=== PATIENT | female | born 1970 | race American Indian/Alaskan Native ===

== ENCOUNTER 2019-02-28 16:19 | Emergency (ER) | payer OTHER ==
[2019-02-28 16:37] VITALS: BP 150/84
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
[2019-02-28] MEDS ORDERED: IBUPROFEN PO ONE (17:42)
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
== END 2019-02-28 19:00 | disposition home or self-care (01) ==
LOC: ED 16:19
DX: S39.012A Strain of muscle, fascia and tendon of lower back, initial encounter (principal); S13.4XXA Sprain of ligaments of cervical spine, initial encounter; V49.49XA Driver injured in collision with other motor vehicles in traffic accident, initial encounter; Y93.89 Activity, other specified; Y92.89 Other specified places as the place of occurrence of the external cause; Y99.8 Other external cause status
CPT/HCPCS: 72040; 72100

== ENCOUNTER 2019-12-31 23:20 | Emergency (ER) | payer SELFPAY ==
[2020-01-01] MEDS ORDERED: IBUPROFEN ORAL LIQD 100 MG/5 ML ORAL.LIQD ONE (00:26)
[2020-01-01 00:27] VITALS: BP 159/91
[2020-01-01] MEDS ORDERED: IBUPROFEN ORAL LIQD 100 MG/5 ML ORAL.LIQD PO ONE (00:27)
[2020-01-01] MEDS ORDERED: dexAMETHasone 20 MG/5 ML VIAL IM ONE (02:02)
[2020-01-01] MEDS ORDERED: PENICILLIN G BENZATHINE 1.2 MILLION UNIT/2 ML INJ IM ONE (02:02)
[2020-01-01] MEDS ORDERED: ACETAMINOPHEN 500 MG TAB PO ONE (02:03)
[2020-01-01] MEDS ORDERED: LIDOCAINE VISCOUS 2% 15 ML ORAL LIQD PO ONE (02:03)
--- NOTE | 2020-01-01 03:15 | Emergency Department Report ---
ED General Adult HPI - General Chief complaint: Sore Throat Stated complaint: SORE THROAT HEADACHE Source: patient Mode of arrival: Ambulatory Limitations: No Limitations - History of Present Illness Initial comments: Patient is a 49-year-old -[place] female with no past medical history who presents to the ED with complaint of acute onset persistent severe sore throat, dysphagia, nasal and sinus congestion, dry cough, diffuse body aches and pains, headache, and subjective fever and chills. Patient states that no one else at home has had similar symptoms. Patient states that pain is worse with swallowing. Patient denies dizziness, nausea, vomiting, diarrhea, abdominal pain,, dysuria, urinary frequency and urgency, vaginal bleeding, vaginal discharge, syncope or low back pain. MD Complaint: Sore throat, dysphagia, swollen lymph nodes -: Sudden, days(s) (3) Location: mouth Radiation: non-radiation Severity scale (0 -10): 7 Quality: aching, sharp Consistency: constant Improves with: none Worsens with: eating Associated Symptoms: denies other symptoms. denies: confusion, chest pain, cough, diaphoresis, fever/chills Treatments Prior to Arrival: none - Related Data Previous Rx's Medication Instructions Recorded Last Taken Type Cyclobenzaprine [Flexeril] 10 mg PO QHS PRN #10 tablet 02/28/19 Unknown Rx Ibuprofen [Motrin] 600 mg PO Q8H PRN #20 tablet 02/28/19 Unknown Rx Azithromycin [Zithromax Z-THOMAS] 250 mg PO DAILY #6 tablet 01/01/20 Unknown Rx Ibuprofen [Motrin] 800 mg PO Q8HR PRN #30 tablet 01/01/20 Unknown Rx Lidocaine Viscous 2% 10 ml PO Q6H PRN #120 ml 01/01/20 Unknown Rx methylPREDNISolone [Medrol 4MG 4 mg PO DAILY #21 tab.ds.pk 01/01/20 Unknown Rx DOSEPAK (21 tabs)] Allergies Allergy/AdvReac Type Severity Reaction Status Date / Time No Known Allergies Allergy Verified 01/01/20 00:32 ED Review of Systems ROS: Stated complaint: SORE THROAT HEADACHE Other details as noted in HPI Constitutional: chills, fever, malaise Eyes: denies: eye pain, eye discharge, vision change ENT: throat pain (Erythematous swollen tonsils and oropharynx), congestion, other (Grossly congested nasal passages). denies: ear pain, dental pain, hearing loss, epistaxis Respiratory: denies: cough, shortness of breath, SOB with exertion, wheezing Cardiovascular: denies: chest pain, palpitations, edema Endocrine: no symptoms reported Gastrointestinal: nausea. denies: abdominal pain, diarrhea Genitourinary: denies: urgency, dysuria, discharge Musculoskeletal: denies: back pain, joint swelling, arthralgia Skin: denies: rash, lesions Neurological: denies: headache, weakness, paresthesias Psychiatric: denies: anxiety, depression Hematological/Lymphatic: denies: easy bleeding, easy bruising ED Past Medical Hx - Past Medical History Previous Medical History?: No - Surgical History Past Surgical History?: Yes Additional Surgical History: ELBOW SURGERY, 2017 - Social History Smoking Status: Never Smoker Substance Use Type: None - Medications Home Medications: Home Medications Medication Instructions Recorded Confirmed Last Taken Type Cyclobenzaprine [Flexeril] 10 mg PO QHS PRN #10 tablet 02/28/19 Unknown Rx Ibuprofen [Motrin] 600 mg PO Q8H PRN #20 tablet 02/28/19 Unknown Rx Azithromycin [Zithromax Z-THOMAS] 250 mg PO DAILY #6 tablet 01/01/20 Unknown Rx Ibuprofen [Motrin] 800 mg PO Q8HR PRN #30 tablet 01/01/20 Unknown Rx Lidocaine Viscous 2% 10 ml PO Q6H PRN #120 ml 01/01/20 Unknown Rx methylPREDNISolone [Medrol 4MG 4 mg PO DAILY #21 tab.ds.pk 01/01/20 Unknown Rx DOSEPAK (21 tabs)] ED Physical Exam - General Limitations: No Limitations General appearance: alert, in no apparent distress - Head Head exam: Present: atraumatic, normocephalic, normal inspection - Eye Eye exam: Present: normal appearance, PERRL, EOMI Pupils: Present: normal accommodation - ENT ENT exam: Present: normal exam, mucous membranes moist, TM's normal bilaterally, normal external ear exam, other (Erythematous swollen tonsils with no sign of peritonsillar abscess) - Neck Neck exam: Present: normal inspection, lymphadenopathy. Absent: tenderness, meningismus - Respiratory Respiratory exam: Present: normal lung sounds bilaterally. Absent: respiratory distress, wheezes, rhonchi, chest wall tenderness, accessory muscle use, decreased breath sounds - Cardiovascular Cardiovascular Exam: Present: normal rhythm, tachycardia. Absent: normal heart sounds, systolic murmur, diastolic murmur, rubs, gallop - GI/Abdominal GI/Abdominal exam: Present: soft, normal bowel sounds. Absent: tenderness, guarding, rebound - Extremities Exam Extremities exam: Present: normal inspection, full ROM, normal capillary refill - Back Exam Back exam: Present: normal inspection, full ROM. Absent: tenderness, CVA tenderness (R), CVA tenderness (L), muscle spasm, paraspinal tenderness, vertebral tenderness - Neurological Exam Neurological exam: Present: alert, oriented X3, CN II-XII intact, normal gait, reflexes normal - Psychiatric Psychiatric exam: Present: normal affect, normal mood. Absent: depressed, agitated - Skin Skin exam: Present: warm, dry, intact, normal color. Absent: rash ED Course Vital Signs 01/01/20 00:21 Temperature 99.9 F H Pulse Rate 108 H Respiratory 16 Rate Blood Pressure 159/91 O2 Sat by Pulse 97 Oximetry ED Medical Decision Making - Medical Decision Making This is a 49-year-old female who presented to the ED with persistent sore throat with dysphagia, subjective fever and chills and diffuse body aches and pains for 3 days. In the ED, patient is alert and oriented x3 and is not in any distress but appears to be uncomfortable, tachycardic and slightly febrile in triage. Patient was treated in the ED for a suspected streptococcal pharyngitis based on the physical exam findings. On reevaluation, patient pain is well controlled medications. Patient will discharge home on medications and advised to follow- up with her primary care physician in 7 to 10 days for reevaluation. Patient was advised return to the ED immediately if symptoms get worse. - Differential Diagnosis Strep pharyngitis; Viral pharyngitis; URI; Bronchitis Critical care attestation.: If time is entered above; I have spent that time in minutes in the direct care of this critically ill patient, excluding procedure time. ED Disposition Clinical Impression: Acute streptococcal pharyngitis, Acute upper respiratory infection, Acute bacterial tonsillitis, Anterior cervical lymphadenopathy Disposition: TO HOME OR SELFCARE Is pt being admited?: No Does the pt Need Aspirin: No Condition: Stable Instructions: Pharyngitis (ED), Strep Throat (ED), Upper Respiratory Infection (ED), Tonsillitis (ED) Additional Instructions: Take medications with food, drink plenty of fluids and follow-up with your primary care physician in 7 to 10 days for reevaluation. Return to the ED immediately if symptoms get worse. Prescriptions: Lidocaine Viscous 2% 10 ml PO Q6H PRN #120 ml PRN Reason: Pain , Severe (7-10) methylPREDNISolone [Medrol 4MG DOSEPAK (21 tabs)] 4 mg PO DAILY #21 tab.ds.pk Ibuprofen [Motrin] 800 mg PO Q8HR PRN #30 tablet PRN Reason: Pain , Severe (7-10) Azithromycin [Zithromax Z-THOMAS] 250 mg PO DAILY #6 tablet Referrals: IONA ALBERTO MD [Staff Physician] - 7-10 days Forms: Work/School Release Form(ED) Time of Disposition: 03:31 Print Language: NORWEGIAN
== END 2020-01-01 04:23 | disposition home or self-care (01) ==
LOC: ED 23:20
DX: J02.0 Streptococcal pharyngitis (principal); R59.0 Localized enlarged lymph nodes; Z98.890 Other specified postprocedural states; Z79.1 Long term (current) use of non-steroidal anti-inflammatories (NSAID); Z79.899 Other long term (current) drug therapy
CPT/HCPCS: 96372; 99282; J0561; J1100

== ENCOUNTER 2020-01-22 16:58 | Emergency (ER) | payer SELFPAY ==
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
[2020-01-22 20:51] VITALS: BP 143/83
== END 2020-01-22 20:50 | disposition home or self-care (01) ==
LOC: ED 16:58
DX: M62.830 Muscle spasm of back (principal); V89.2XXA Person injured in unspecified motor-vehicle accident, traffic, initial encounter; Y93.89 Activity, other specified; Y92.410 Unspecified street and highway as the place of occurrence of the external cause; Y99.8 Other external cause status
CPT/HCPCS: 72040; 72100